=== PATIENT | male | born 1965 | race Caucasian/White ===

== ENCOUNTER → 2025-03-12 15:06 | Outpatient (CLI) | payer OTHER, SELFPAY | PROVIDERS: Visit Provider Nurse Practitioner Family | DX: T14.8XXA Other injury of unspecified body region, initial encounter (principal) | CPT/HCPCS: 87070; 87075; 87077; 87147; 87186; 87205 ==

== ENCOUNTER → 2025-03-12 15:53 | Outpatient (CLI) | payer OTHER, SELFPAY ==
--- NOTE | 2025-03-12 16:00 | DI.RAD.S_ITS ---
PROCEDURE: XR HAND LT MIN 3V INDICATIONS: Foreign body L and I TECHNIQUE: Four views of the hand(s) acquired. COMPARISON: None. FINDINGS: Bones: No fractures or dislocations. Carpal bones are normally aligned. No suspicious bony lesions. Soft tissues: Swelling over the metacarpals. No foreign bodies or soft tissue gas. There is an incidental, tiny, shard like foreign body or fracture dorsal to the 5th DIP joint without overlying soft tissue swelling. No suspicious soft tissue calcifications. IMPRESSION: No foreign bodies or fractures around the metacarpal portion of the hand. Correlate clinically to determine acuity of finding dorsal to the 5th DIP joint. This is most likely incidental. Dictated by: Mely Olson M.D. on 03/12/2025 at 18:55 Approved by: Mely Olson M.D. on 03/12/2025 at 18:58
== END ==
LOC: RAD 15:59
PROVIDERS: Referring Provider Nurse Practitioner Family; Visit Provider Nurse Practitioner Family
DX: L03.113 Cellulitis of right upper limb (principal)
CPT/HCPCS: 73130